=== PATIENT | female | born 1960 | race Caucasian/White ===

== ENCOUNTER 2019-01-18 18:33 | Emergency (ER) | payer OTHER ==
[2019-01-18 19:47] VITALS: PULSE 89
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
[2019-01-18] MEDS ORDERED: Diphtheria,Pertussis(Acell),Tetanus Vaccine 0.5 ML SDV IM ONE (20:30)
[2019-01-18 20:31] VITALS: BP 154/88
== END 2019-01-18 20:38 | disposition home or self-care (01) ==
LOC: FB.ED 18:33
DX: S01.21XA Laceration without foreign body of nose, initial encounter (principal); S60.221A Contusion of right hand, initial encounter; I10 Essential (primary) hypertension; E03.9 Hypothyroidism, unspecified; Z79.899 Other long term (current) drug therapy; Z23 Encounter for immunization; W18.00XA Striking against unspecified object with subsequent fall, initial encounter; W25.XXXA Contact with sharp glass, initial encounter; Y92.239 Unspecified place in hospital as the place of occurrence of the external cause
CPT/HCPCS: 12001; 12011; 90471; 90715; 99283

== ENCOUNTER 2023-01-07 04:49 | Emergency (ER) | payer OTHER ==
[2023-01-07] MEDS ORDERED: HYDROmorphone 2 MG/ML SDV IM ONE (05:08)
[2023-01-07] MEDS ORDERED: hydrOXYzine HCl 50 MG/ML SDV IM ONE (05:08)
[2023-01-07 07:04] VITALS: BP 124/63; PULSE 83
== END 2023-01-07 07:25 ==
LOC: FB.ED 04:49
DX: S99.912A Unspecified injury of left ankle, initial encounter (principal); I10 Essential (primary) hypertension; E03.9 Hypothyroidism, unspecified; Z79.899 Other long term (current) drug therapy; X50.1XXA Overexertion from prolonged static or awkward postures, initial encounter
CPT/HCPCS: 73610-LT; 96372; 99285; J1170; J3410

== ENCOUNTER 2023-03-04 17:10 | Emergency (ER) | payer OTHER ==
[2023-03-04 17:31] LABS: BASOPHILS ABSOLUTE AUTO 0.1 x10-3/uL (0.0-0.1); BASOPHILS PERCENT AUTO 0.7 % (0.2-1.5); EOSINOPHILS ABSOLUTE AUTO 0.2 x10-3/uL (0.0-0.8); EOSINOPHILS PERCENT AUTO 1.8 % (0.6-8.1); HEMATOCRIT 31.5 % (34.2-48.2); HEMOGLOBIN 10.7 g/dL (11.4-15.5); LYMPHOCYTES ABSOLUTE AUTO 1.2 x10-3/uL (1.0-4.4); LYMPHOCYTES PERCENT AUTO 12.5 % (18.4-52.1); MEAN CORPUSCULAR HEMOGLOBIN 31.4 pg (23.9-33.9); MEAN CORPUSCULAR HGB CONC 33.9 g/dL (31.9-34.8); MEAN CORPUSCULAR VOLUME 92.4 fL (76.7-100.5); MEAN PLATELET VOLUME 8.8 fL (7.1-12.4); MONOCYTES ABSOLUTE AUTO 0.6 x10-3/uL (0.3-1.0); MONOCYTES PERCENT AUTO 6.1 % (4.4-15.7); NEUTROPHILS ABSOLUTE AUTO 7.6 x10-3/uL (1.5-6.3); NEUTROPHILS PERCENT AUTO 78.9 % (30.8-76.2); PLATELET COUNT,PLT 254 x10(3)uL (151-488); RED BLOOD CELL COUNT 3.41 x10(6)uL (3.60-5.20); RED CELL DISTRIBUTION WIDTH 17.2 % (12.3-16.5); WHITE BLOOD CELL COUNT,WBC 9.6 x10-3/uL (3.0-10.3)
[2023-03-04 17:33] LABS: BLOOD UREA NITROGEN,BUN 20 mg/dL (7-18); BUN/CREATININE RATIO 28.6 (9-20); CARBON DIOXIDE,CO2 26 mmol/L (21-32); CHLORIDE,CL 106 mmol/L (100-110); CREATININE 0.7 mg/dL (0.55-1.02); EST CRCL DRUG DOSING (CG) 59.09 mL/min; ESTIMATED GFR 97 mL/min (>60); GLUCOSE RANDOM 122 mg/dL (80-116); POTASSIUM,K 3.5 mmol/L (3.5-5.3); SODIUM,NA 142 mmol/L (135-145)
[2023-03-04 17:43] LABS: INR 1.2 (1.00-1.24); PROTHROMBIN TIME 12.3 sec (9.0-11.1); PTT,PARTIAL THROMBOPLSTIN TIME 32.5 SECONDS (24.4-33.2)
[2023-03-04 17:44] LABS: A/G RATIO 0.8; ALANINE AMINOTRANSFERASE,ALT 16 U/L (12-36); ALBUMIN 3.1 g/dL (3.2-4.6); ALKALINE PHOSPHATASE 144 IU/L (56-112); ASPARTATE AMNIOTRANSFERASE,AST 16 IU/L (5-25); BILIRUBIN TOTAL 0.4 mg/dL (0.1-1.3); PROTEIN TOTAL,TP 7.2 g/dL (6.0-8.0)
[2023-03-04] MEDS ORDERED: Sodium Chloride 0.9% 1,000 ML IV ONE (19:04)
[2023-03-04] MEDS ORDERED: Pantoprazole 40 MG Vial IVPUSH ONE (19:39)
[2023-03-04] MEDS ORDERED: Carbidopa/Levodopa 25-100 MG Tab.ER PO ONE ×2 (20:00→20:08)
[2023-03-04] MEDS ORDERED: levETIRAcetam 500 MG Tab PO ONE (20:05)
[2023-03-04] MEDS ORDERED: Carbidopa/Levodopa 25-100 MG Tab PO ONE (20:36)
[2023-03-04 23:12] VITALS: BP 142/61; PULSE 89
== END 2023-03-04 21:45 ==
LOC: FB.ED 17:10
DX: K25.4 Chronic or unspecified gastric ulcer with hemorrhage (principal); R79.89 Other specified abnormal findings of blood chemistry; I10 Essential (primary) hypertension; I25.2 Old myocardial infarction; E03.9 Hypothyroidism, unspecified; Z86.16 Personal history of COVID-19; Z79.899 Other long term (current) drug therapy; Z98.890 Other specified postprocedural states
CPT/HCPCS: 36415; 80053; 82272; 85025; 85610; 85730; 96361; 96374; 99285; 99285-25; A9270-GY; C9113; J7030

== ENCOUNTER 2023-04-10 14:05 | Emergency (ER) | payer OTHER ==
[2023-04-10] MEDS ORDERED: Sodium Chloride 0.9% 10 ML Syringe FLUSH PRN (14:14)
[2023-04-10 14:36] LABS: BASOPHILS ABSOLUTE AUTO 0.1 x10-3/uL (0.0-0.1); BASOPHILS PERCENT AUTO 0.7 % (0.2-1.5); EOSINOPHILS ABSOLUTE AUTO 0.2 x10-3/uL (0.0-0.8); HEMATOCRIT 31.2 % (34.2-48.2); HEMOGLOBIN 10.8 g/dL (11.4-15.5); LYMPHOCYTES ABSOLUTE AUTO 1.5 x10-3/uL (1.0-4.4); LYMPHOCYTES PERCENT AUTO 20.3 % (18.4-52.1); MEAN CORPUSCULAR HEMOGLOBIN 31.8 pg (23.9-33.9); MEAN CORPUSCULAR HGB CONC 34.7 g/dL (31.9-34.8); MEAN CORPUSCULAR VOLUME 91.8 fL (76.7-100.5); MEAN PLATELET VOLUME 8.8 fL (7.1-12.4); MONOCYTES ABSOLUTE AUTO 0.7 x10-3/uL (0.3-1.0); MONOCYTES PERCENT AUTO 8.6 % (4.4-15.7); NEUTROPHILS ABSOLUTE AUTO 5.1 x10-3/uL (1.5-6.3); NEUTROPHILS PERCENT AUTO 67.4 % (30.8-76.2); PLATELET COUNT,PLT 252 x10(3)uL (151-488); RED CELL DISTRIBUTION WIDTH 14.5 % (12.3-16.5); WHITE BLOOD CELL COUNT,WBC 7.6 x10-3/uL (3.0-10.3)
[2023-04-10 14:40] LABS: BLOOD UREA NITROGEN,BUN 17 mg/dL (7-18); BUN/CREATININE RATIO 24.3 (9-20); CARBON DIOXIDE,CO2 27 mmol/L (21-32); CHLORIDE,CL 107 mmol/L (100-110); CREATININE 0.7 mg/dL (0.55-1.02); ESTIMATED GFR 97 mL/min (>60); GLUCOSE RANDOM 109 mg/dL (80-116); POTASSIUM,K 3.3 mmol/L (3.5-5.3); SODIUM,NA 143 mmol/L (135-145)
[2023-04-10 14:46] LABS: A/G RATIO 0.9; ALANINE AMINOTRANSFERASE,ALT 7 U/L (12-36); ALBUMIN 3.1 g/dL (3.2-4.6); ALKALINE PHOSPHATASE 106 IU/L (56-112); AMYLASE 21 U/L (25-115); ASPARTATE AMNIOTRANSFERASE,AST 10 IU/L (5-25); BILIRUBIN TOTAL 0.6 mg/dL (0.1-1.3); PROTEIN TOTAL,TP 6.5 g/dL (6.0-8.0)
[2023-04-10 14:50] LABS: INR 1.28 (1.00-1.24); PROTHROMBIN TIME 13.1 sec (9.0-11.1)
[2023-04-10 14:52] LABS: PTT,PARTIAL THROMBOPLSTIN TIME 30.1 SECONDS (24.4-33.2)
[2023-04-10 15:58] VITALS: BP 108/55; PULSE 89
== END 2023-04-10 16:06 ==
LOC: FB.ED 14:05
DX: K64.8 Other hemorrhoids (principal); D68.318 Other hemorrhagic disorder due to intrinsic circulating anticoagulants, antibodies, or inhibitors; I10 Essential (primary) hypertension; I25.2 Old myocardial infarction; E03.9 Hypothyroidism, unspecified; Z86.16 Personal history of COVID-19; Z79.899 Other long term (current) drug therapy
CPT/HCPCS: 36415; 80053; 82150; 82272; 83690; 85025; 85610; 85730; 99284; 99285

== ENCOUNTER 2023-12-05 14:24 | Emergency (ER) | payer OTHER ==
[2023-12-05] MEDS ORDERED: Sodium Chloride 0.9% 10 ML Syringe FLUSH PRN (14:55)
[2023-12-05 15:19] LABS: BASOPHILS PERCENT AUTO 0.6 % (0.2-1.5); EOSINOPHILS ABSOLUTE AUTO 0.3 x10-3/uL (0.0-0.8); EOSINOPHILS PERCENT AUTO 4.9 % (0.6-8.1); HEMATOCRIT 29.1 % (34.2-48.2); HEMOGLOBIN 9.9 g/dL (11.4-15.5); LYMPHOCYTES ABSOLUTE AUTO 0.7 x10-3/uL (1.0-4.4); LYMPHOCYTES PERCENT AUTO 12.2 % (18.4-52.1); MEAN CORPUSCULAR HEMOGLOBIN 30.8 pg (23.9-33.9); MEAN CORPUSCULAR HGB CONC 33.8 g/dL (31.9-34.8); MEAN PLATELET VOLUME 7.5 fL (7.1-12.4); MONOCYTES ABSOLUTE AUTO 0.5 x10-3/uL (0.3-1.0); MONOCYTES PERCENT AUTO 8.4 % (4.4-15.7); NEUTROPHILS ABSOLUTE AUTO 4.4 x10-3/uL (1.5-6.3); NEUTROPHILS PERCENT AUTO 73.9 % (30.8-76.2); PLATELET COUNT,PLT 316 x10(3)uL (151-488); RED CELL DISTRIBUTION WIDTH 14.8 % (12.3-16.5); WHITE BLOOD CELL COUNT,WBC 5.9 x10-3/uL (3.0-10.3)
[2023-12-05] MEDS: Furosemide 40 MG/4 ML VIAL IVPUSH ONE (15:27)
[2023-12-05] MEDS: Carbidopa/Levodopa 25-100 MG Tab PO ONE (15:27)
[2023-12-05 16:00] LABS: BLOOD UREA NITROGEN,BUN 15 mg/dL (7-18); CALCIUM 8.3 mg/dL (8.6-10.2); CARBON DIOXIDE,CO2 31 mmol/L (21-32); CHLORIDE,CL 102 mmol/L (100-110); CREATININE 0.6 mg/dL (0.55-1.02); EST CRCL DRUG DOSING (CG) 68.04 mL/min; ESTIMATED GFR 100 mL/min (>60); GLUCOSE RANDOM 125 mg/dL (80-116); POTASSIUM,K 3.8 mmol/L (3.5-5.3); SODIUM,NA 141 mmol/L (135-145)
[2023-12-05 16:06] LABS: A/G RATIO 0.8; ALBUMIN 2.9 g/dL (3.2-4.6); ALKALINE PHOSPHATASE 100 IU/L (56-112); ASPARTATE AMNIOTRANSFERASE,AST 6 IU/L (5-25); BILIRUBIN TOTAL 0.9 mg/dL (0.1-1.3); PROTEIN TOTAL,TP 6.4 g/dL (6.0-8.0)
[2023-12-05 16:07] LABS: ALANINE AMINOTRANSFERASE,ALT < 6 U/L (12-36)
[2023-12-05 18:57] VITALS: BP 134/93; PULSE 105
== END 2023-12-05 17:34 ==
LOC: FB.ED 14:24
DX: J81.0 Acute pulmonary edema (principal); D64.9 Anemia, unspecified; E03.9 Hypothyroidism, unspecified; Z91.048 Other nonmedicinal substance allergy status; Z79.890 Hormone replacement therapy; Z79.899 Other long term (current) drug therapy; Z86.16 Personal history of COVID-19; Z90.710 Acquired absence of both cervix and uterus
CPT/HCPCS: 36415; 71046; 80053; 83880; 85025; 96374; 99285; A9270; J1940; 99284

== ENCOUNTER 2023-12-06 20:36 | Emergency (ER) | payer OTHER ==
[2023-12-06] MEDS: cefTRIAXone 1 GM Vial IM ONE (21:08)
[2023-12-06 21:34] VITALS: BP 117/68; PULSE 108
== END 2023-12-06 21:27 ==
LOC: FB.ED 20:36
DX: J18.9 Pneumonia, unspecified organism (principal); G20.A1 Parkinson's disease without dyskinesia, without mention of fluctuations; I10 Essential (primary) hypertension; I25.2 Old myocardial infarction; E03.9 Hypothyroidism, unspecified; Z90.710 Acquired absence of both cervix and uterus; Z91.018 Allergy to other foods; Z79.890 Hormone replacement therapy; Z86.16 Personal history of COVID-19; Z79.899 Other long term (current) drug therapy
CPT/HCPCS: 96372; 99283; J0696

== ENCOUNTER 2023-12-10 07:28 | Emergency (ER) | payer OTHER ==
[2023-12-10] MEDS ORDERED: Sodium Chloride 0.9% 10 ML Syringe FLUSH PRN (08:01)
[2023-12-10 08:35] LABS: BASE EXCESS VENOUS,POC 8 mmol/L (-2 - 3+); PCO2 VENOUS,POC 44 mmHg (41-51); PH VENOUS,POC 7.48 pH Units (7.32-7.43)
[2023-12-10 08:36] LABS: BASOPHILS PERCENT AUTO 0.4 % (0.2-1.5); EOSINOPHILS ABSOLUTE AUTO 0.3 x10-3/uL (0.0-0.8); HEMOGLOBIN 9.2 g/dL (11.4-15.5); LYMPHOCYTES ABSOLUTE AUTO 0.6 x10-3/uL (1.0-4.4); LYMPHOCYTES PERCENT AUTO 8.3 % (18.4-52.1); MEAN CORPUSCULAR HEMOGLOBIN 30.8 pg (23.9-33.9); MEAN CORPUSCULAR HGB CONC 34.1 g/dL (31.9-34.8); MEAN CORPUSCULAR VOLUME 90.3 fL (76.7-100.5); MONOCYTES ABSOLUTE AUTO 0.9 x10-3/uL (0.3-1.0); MONOCYTES PERCENT AUTO 11.7 % (4.4-15.7); NEUTROPHILS ABSOLUTE AUTO 5.8 x10-3/uL (1.5-6.3); NEUTROPHILS PERCENT AUTO 75.6 % (30.8-76.2); PLATELET COUNT,PLT 410 x10(3)uL (151-488); RED BLOOD CELL COUNT 2.99 x10(6)uL (3.60-5.20); RED CELL DISTRIBUTION WIDTH 14.7 % (12.3-16.5); WHITE BLOOD CELL COUNT,WBC 7.7 x10-3/uL (3.0-10.3)
[2023-12-10] MEDS: Iopamidol 755 Mg/ML 100 ML Bottle IV ONE (08:41)
[2023-12-10 08:44] VITALS: PULSE 103
[2023-12-10 08:44] LABS: BLOOD UREA NITROGEN,BUN 13 mg/dL (7-18); CALCIUM 8.2 mg/dL (8.6-10.2); CARBON DIOXIDE,CO2 33 mmol/L (21-32); CHLORIDE,CL 101 mmol/L (100-110); CREATININE 0.5 mg/dL (0.55-1.02); EST CRCL DRUG DOSING (CG) 81.65 mL/min; ESTIMATED GFR 105 mL/min (>60); GLUCOSE RANDOM 102 mg/dL (80-116); POTASSIUM,K 3.5 mmol/L (3.5-5.3); SODIUM,NA 140 mmol/L (135-145)
[2023-12-10 08:55] LABS: A/G RATIO 0.7; ALANINE AMINOTRANSFERASE,ALT 7 U/L (12-36); ALBUMIN 2.7 g/dL (3.2-4.6); ALKALINE PHOSPHATASE 98 IU/L (56-112); ASPARTATE AMNIOTRANSFERASE,AST 11 IU/L (5-25); BILIRUBIN TOTAL 0.7 mg/dL (0.1-1.3); PROTEIN TOTAL,TP 6.6 g/dL (6.0-8.0)
[2023-12-10 08:56] LABS: INR 1.05 (1.00-1.24); PROTHROMBIN TIME 10.9 sec (9.0-11.1)
[2023-12-10 09:10] LABS: D-DIMER QUANTITATIVE 6.99 mg/LFEU (0.0-0.59)
[2023-12-10 10:21] VITALS: BP 119/67
== END 2023-12-10 10:24 ==
LOC: FB.ED 07:28
DX: G20.A1 Parkinson's disease without dyskinesia, without mention of fluctuations (principal); K59.00 Constipation, unspecified; I10 Essential (primary) hypertension; E03.9 Hypothyroidism, unspecified; Z86.16 Personal history of COVID-19; Z79.899 Other long term (current) drug therapy; Z79.890 Hormone replacement therapy; Z91.048 Other nonmedicinal substance allergy status
CPT/HCPCS: 36415; 71275; 74176; 80053; 83605; 83880; 84484; 85025; 85379; 85610; 87040; 87635; 93005; 99285; Q9967; U0002

== ENCOUNTER 2023-12-13 15:41 | Emergency (ER) | payer OTHER ==
[2023-12-13 16:36] LABS: HEMATOCRIT 32.4 % (34.2-48.2); HEMOGLOBIN 10.7 g/dL (11.4-15.5); MEAN CORPUSCULAR HEMOGLOBIN 29.9 pg (23.9-33.9); MEAN CORPUSCULAR HGB CONC 32.9 g/dL (31.9-34.8); MEAN CORPUSCULAR VOLUME 90.9 fL (76.7-100.5); MEAN PLATELET VOLUME 7.3 fL (7.1-12.4); PLATELET COUNT,PLT 524 x10(3)uL (151-488); RED BLOOD CELL COUNT 3.56 x10(6)uL (3.60-5.20); RED CELL DISTRIBUTION WIDTH 15.1 % (12.3-16.5); WHITE BLOOD CELL COUNT,WBC 8.3 x10-3/uL (3.0-10.3)
[2023-12-13 16:37] LABS: BLOOD UREA NITROGEN,BUN 12 mg/dL (7-18); CALCIUM 8.7 mg/dL (8.6-10.2); CARBON DIOXIDE,CO2 31 mmol/L (21-32); CHLORIDE,CL 101 mmol/L (100-110); CREATININE 0.6 mg/dL (0.55-1.02); ESTIMATED GFR 100 mL/min (>60); GLUCOSE RANDOM 119 mg/dL (80-116); POTASSIUM,K 4.3 mmol/L (3.5-5.3); SODIUM,NA 139 mmol/L (135-145)
[2023-12-13 16:52] LABS: C-REACTIVE PROTEIN 9.45 mg/dL (<0.50)
[2023-12-13 17:01] LABS: BAND PERCENT MAN 1 % (0-6); EOSINOPHILS PERCENT MAN 1 % (0-5); LYMPHOCYTES PERCENT MAN 4 % (13-37); MONOCYTES PERCENT MAN 4 % (4-12); SEG NEUTROPHILS PERCENT MAN 90 % (46-82)
[2023-12-13] MEDS: Iopamidol 755 Mg/ML 100 ML Bottle IV SCH (17:10)
[2023-12-13] MEDS: Sodium Chloride 0.9% 1,000 ML IV SCH (19:00)
[2023-12-13] MEDS: Sodium Chloride 0.9% 10 ML Syringe FLUSH PRN (19:00)
[2023-12-13 19:01] VITALS: BP 124/86; PULSE 118
[2023-12-13] MEDS: Acetaminophen 325 MG Tab PO ONE (19:09)
[2023-12-13 19:50] LABS: HEMATOCRIT 30.7 % (34.2-48.2); HEMOGLOBIN 10.2 g/dL (11.4-15.5); MEAN CORPUSCULAR HGB CONC 33.2 g/dL (31.9-34.8); MEAN CORPUSCULAR VOLUME 90.4 fL (76.7-100.5); MEAN PLATELET VOLUME 7.6 fL (7.1-12.4); PLATELET COUNT,PLT 544 x10(3)uL (151-488); RED CELL DISTRIBUTION WIDTH 14.9 % (12.3-16.5); WHITE BLOOD CELL COUNT,WBC 8.9 x10-3/uL (3.0-10.3)
[2023-12-13 19:55] LABS: BAND PERCENT MAN 4 % (0-6); EOSINOPHILS PERCENT MAN 2 % (0-5); LYMPHOCYTES PERCENT MAN 7 % (13-37); MONOCYTES PERCENT MAN 4 % (4-12); SEG NEUTROPHILS PERCENT MAN 83 % (46-82)
[2023-12-13 20:18] LABS: LACTIC ACID 1.4 mmol/L (0.4-2.0)
== END 2023-12-13 21:08 ==
LOC: FB.ED 15:41
DX: C55 Malignant neoplasm of uterus, part unspecified (principal); I10 Essential (primary) hypertension; Z86.16 Personal history of COVID-19; Z90.710 Acquired absence of both cervix and uterus; Z79.899 Other long term (current) drug therapy; Z79.890 Hormone replacement therapy; Z91.048 Other nonmedicinal substance allergy status
CPT/HCPCS: 36415; 74177; 80048; 82272; 83605; 83690; 85025; 86140; 87040; 96360; 96361; 99284; A9270; J3490; J7030; Q9967

== ENCOUNTER 2024-01-13 21:37 | Emergency (ER) | payer OTHER ==
[2024-01-13] MEDS: SODIUM CHLORIDE 0.9% IV ONE (21:48)
[2024-01-13] MEDS: LEVETIRACETAM IV ONE (21:48)
[2024-01-13] MEDS: LORazepam 2 MG/ML SDV IVPUSH ONE (21:48)
[2024-01-13] MEDS: LORazepam 2 MG/ML SDV IVPUSH STA (22:00)
[2024-01-13 22:02] LABS: BLOOD UREA NITROGEN,BUN 16 mg/dL (7-18); CALCIUM 8.3 mg/dL (8.6-10.2); CARBON DIOXIDE,CO2 19 mmol/L (21-32); CHLORIDE,CL 101 mmol/L (100-110); CREATININE 0.8 mg/dL (0.55-1.02); ESTIMATED GFR 82 mL/min (>60); GLUCOSE RANDOM 101 mg/dL (80-116); HEMATOCRIT 32.3 % (34.2-48.2); HEMOGLOBIN 10.7 g/dL (11.4-15.5); MEAN CORPUSCULAR HEMOGLOBIN 28.6 pg (23.9-33.9); MEAN CORPUSCULAR HGB CONC 33.1 g/dL (31.9-34.8); MEAN CORPUSCULAR VOLUME 86.4 fL (76.7-100.5); MEAN PLATELET VOLUME 9.1 fL (7.1-12.4); PLATELET COUNT,PLT 338 x10(3)uL (151-488); POTASSIUM,K 3.9 mmol/L (3.5-5.3); RED BLOOD CELL COUNT 3.74 x10(6)uL (3.60-5.20); RED CELL DISTRIBUTION WIDTH 15.9 % (12.3-16.5); SODIUM,NA 138 mmol/L (135-145); WHITE BLOOD CELL COUNT,WBC 9.4 x10-3/uL (3.0-10.3)
[2024-01-13 22:08] LABS: A/G RATIO 0.5; ALBUMIN 2.5 g/dL (3.2-4.6); ALKALINE PHOSPHATASE 167 IU/L (56-112); ASPARTATE AMNIOTRANSFERASE,AST 16 IU/L (5-25); BILIRUBIN TOTAL 0.9 mg/dL (0.1-1.3); PROTEIN TOTAL,TP 7.1 g/dL (6.0-8.0)
[2024-01-13 22:11] VITALS: BP 126/80; PULSE 119
[2024-01-13 22:11] LABS: ALANINE AMINOTRANSFERASE,ALT < 6 U/L (12-36)
[2024-01-13 23:02] LABS: EOSINOPHILS PERCENT MAN 9 % (0-5); LYMPHOCYTES PERCENT MAN 17 % (13-37); MONOCYTES PERCENT MAN 8 % (4-12); SEG NEUTROPHILS PERCENT MAN 66 % (46-82)
[2024-01-13] MEDS: Sodium Chloride 0.9% 1,000 ML IV SCH (23:19)
== END 2024-01-14 00:30 ==
LOC: FB.ED 21:37
DX: G40.909 Epilepsy, unspecified, not intractable, without status epilepticus (principal); I10 Essential (primary) hypertension; E03.9 Hypothyroidism, unspecified; Z91.048 Other nonmedicinal substance allergy status; Z79.890 Hormone replacement therapy; Z79.899 Other long term (current) drug therapy; Z86.16 Personal history of COVID-19; Z90.710 Acquired absence of both cervix and uterus
CPT/HCPCS: 36415; 71045; 80053; 85025; 96365; 96366; 96375; 99284; 99285; J1953; J2060; J3490; J7030

== ENCOUNTER 2024-01-17 08:36 | Emergency (ER) | payer OTHER ==
[2024-01-17] MEDS ORDERED: Sodium Chloride 0.9% 10 ML Syringe FLUSH PRN (08:41)
[2024-01-17] MEDS: LORazepam 2 MG/ML SDV IVPUSH ONE (08:48)
[2024-01-17 08:56] VITALS: BP 136/85; PULSE 109
[2024-01-17 09:02] LABS: BASOPHILS PERCENT AUTO 0.7 % (0.2-1.5); EOSINOPHILS ABSOLUTE AUTO 0.2 x10-3/uL (0.0-0.8); EOSINOPHILS PERCENT AUTO 2.9 % (0.6-8.1); HEMATOCRIT 32.7 % (34.2-48.2); HEMOGLOBIN 10.6 g/dL (11.4-15.5); LYMPHOCYTES ABSOLUTE AUTO 0.9 x10-3/uL (1.0-4.4); LYMPHOCYTES PERCENT AUTO 13.2 % (18.4-52.1); MEAN CORPUSCULAR HEMOGLOBIN 28.2 pg (23.9-33.9); MEAN CORPUSCULAR HGB CONC 32.5 g/dL (31.9-34.8); MEAN CORPUSCULAR VOLUME 86.9 fL (76.7-100.5); MEAN PLATELET VOLUME 9.2 fL (7.1-12.4); MONOCYTES ABSOLUTE AUTO 0.6 x10-3/uL (0.3-1.0); MONOCYTES PERCENT AUTO 9.3 % (4.4-15.7); NEUTROPHILS PERCENT AUTO 73.9 % (30.8-76.2); PLATELET COUNT,PLT 270 x10(3)uL (151-488); RED BLOOD CELL COUNT 3.76 x10(6)uL (3.60-5.20); WHITE BLOOD CELL COUNT,WBC 6.7 x10-3/uL (3.0-10.3)
[2024-01-17] MEDS: levETIRAcetam in NaCl (iso-os) 1,000 MG in Premix Bag 1 BAG IV ONE (09:04)
[2024-01-17] MEDS: LORazepam 2 MG/ML SDV ONE (09:08)
[2024-01-17 09:09] LABS: BLOOD UREA NITROGEN,BUN 9 mg/dL (7-18); CALCIUM 8.3 mg/dL (8.6-10.2); CARBON DIOXIDE,CO2 22 mmol/L (21-32); CHLORIDE,CL 100 mmol/L (100-110); CREATININE 0.6 mg/dL (0.55-1.02); ESTIMATED GFR 100 mL/min (>60); GLUCOSE RANDOM 87 mg/dL (80-116); POTASSIUM,K 3.7 mmol/L (3.5-5.3); SODIUM,NA 138 mmol/L (135-145)
[2024-01-17 09:15] LABS: A/G RATIO 0.5; ALANINE AMINOTRANSFERASE,ALT < 6 U/L (12-36); ALBUMIN 2.6 g/dL (3.2-4.6); ALKALINE PHOSPHATASE 222 IU/L (56-112); ASPARTATE AMNIOTRANSFERASE,AST 60 IU/L (5-25); PROTEIN TOTAL,TP 7.5 g/dL (6.0-8.0)
[2024-01-17 10:16] LABS: BILIRUBIN,URINE NEGATIVE (NEGATIVE); GLUCOSE,URINE NORMAL (NORMAL); KETONES,URINE 15 mg/dL (NEGATIVE); LEUKOCYTE ESTERASE,URINE LARGE (NEGATIVE); NITRITE,URINE POSITIVE (NEGATIVE); OCCULT BLOOD,URINE LARGE (NEGATIVE); PROTEIN,URINE NEGATIVE (NEGATIVE); UROBILINOGEN,URINE NORMAL (NEGATIVE)
[2024-01-17 10:22] LABS: APPEARANCE,URINE CLOUDY (CLEAR); BACTERIA,URINE MANY (NS); COLOR,URINE YELLOW (YELLOW); RBC,URINE 20-30 (0-5); SQUAMOUS EPITHELIAL CELLS,UR RARE (NS,R,O); WBC,URINE 20-30 (0-5)
[2024-01-17 10:23] LABS: YEAST,URINE OCCASIONAL (NS)
== END 2024-01-17 11:05 ==
LOC: FB.ED 08:36
DX: G20.B1 Parkinson's disease with dyskinesia, without mention of fluctuations (principal); N30.01 Acute cystitis with hematuria; R56.9 Unspecified convulsions; B37.9 Candidiasis, unspecified; I10 Essential (primary) hypertension; I25.2 Old myocardial infarction; Z86.16 Personal history of COVID-19; Z90.710 Acquired absence of both cervix and uterus; Z79.899 Other long term (current) drug therapy; Z91.048 Other nonmedicinal substance allergy status
CPT/HCPCS: 36415; 70450; 80053; 81001; 82550; 85025; 87086; 87088; 87186; 96374; 96375; 99284; 99284-25; J1953; J2060

== ENCOUNTER 2024-01-18 07:57 | Inpatient (IN) | payer OTHER ==
[2024-01-18] MEDS ORDERED: LORazepam 2 MG/ML SDV IVPUSH ONE (08:39)
[2024-01-18 08:55] LABS: BASOPHILS ABSOLUTE AUTO 0.1 x10-3/uL (0.0-0.1); BASOPHILS PERCENT AUTO 0.8 % (0.2-1.5); EOSINOPHILS ABSOLUTE AUTO 0.2 x10-3/uL (0.0-0.8); EOSINOPHILS PERCENT AUTO 3.1 % (0.6-8.1); HEMATOCRIT 30.6 % (34.2-48.2); LYMPHOCYTES ABSOLUTE AUTO 0.9 x10-3/uL (1.0-4.4); LYMPHOCYTES PERCENT AUTO 13.3 % (18.4-52.1); MEAN CORPUSCULAR HEMOGLOBIN 28.2 pg (23.9-33.9); MEAN CORPUSCULAR HGB CONC 32.5 g/dL (31.9-34.8); MEAN CORPUSCULAR VOLUME 86.7 fL (76.7-100.5); MEAN PLATELET VOLUME 9.3 fL (7.1-12.4); MONOCYTES ABSOLUTE AUTO 0.5 x10-3/uL (0.3-1.0); MONOCYTES PERCENT AUTO 8.2 % (4.4-15.7); NEUTROPHILS PERCENT AUTO 74.6 % (30.8-76.2); PLATELET COUNT,PLT 286 x10(3)uL (151-488); RED BLOOD CELL COUNT 3.54 x10(6)uL (3.60-5.20); WHITE BLOOD CELL COUNT,WBC 6.7 x10-3/uL (3.0-10.3)
[2024-01-18 08:59] LABS: BLOOD UREA NITROGEN,BUN 11 mg/dL (7-18); BUN/CREATININE RATIO 15.7 (9-20); CALCIUM 8.2 mg/dL (8.6-10.2); CARBON DIOXIDE,CO2 21 mmol/L (21-32); CHLORIDE,CL 100 mmol/L (100-110); CREATININE 0.7 mg/dL (0.55-1.02); ESTIMATED GFR 97 mL/min (>60); GLUCOSE RANDOM 87 mg/dL (80-116); POTASSIUM,K 3.6 mmol/L (3.5-5.3); SODIUM,NA 138 mmol/L (135-145)
[2024-01-18 09:05] LABS: A/G RATIO 0.5; ALANINE AMINOTRANSFERASE,ALT 12 U/L (12-36); ALBUMIN 2.6 g/dL (3.2-4.6); ALKALINE PHOSPHATASE 211 IU/L (56-112); ASPARTATE AMNIOTRANSFERASE,AST 49 IU/L (5-25); BILIRUBIN TOTAL 0.8 mg/dL (0.1-1.3); PROTEIN TOTAL,TP 7.4 g/dL (6.0-8.0)
[2024-01-18] MEDS ORDERED: Cocoa Butter/Phenylephrine Rectal Supp RECTAL PRN (15:14)
[2024-01-18] MEDS ORDERED: Loratadine 10 MG Tab PO PRN (15:14)
[2024-01-18] MEDS ORDERED: Magnesium Hydroxide 400 MG/5 ML Susp 30 ML Cup PO PRN (15:14)
[2024-01-18] MEDS ORDERED: Polyethylene Glycol 3350 Powder 17 GM Packet PO PRN (15:14)
[2024-01-18] MEDS ORDERED: Bisacodyl 10 MG Supp RECTAL PRN (15:14)
[2024-01-18] MEDS ORDERED: Docusate Sodium 100 MG Cap PO PRN (15:14)
[2024-01-18] MEDS ORDERED: Loperamide 2 MG Cap PO PRN (15:14)
[2024-01-18] MEDS ORDERED: Acetaminophen 325 MG Tab PO PRN (15:14)
[2024-01-18] MEDS ORDERED: guaiFENesin 100 MG/5 ML Soln 5 ML UD Cup PO PRN (15:14)
[2024-01-18] MEDS ORDERED: cefTRIAXone 1 GM in Sodium Chloride 0.9% 50 ML IV SCH (15:30)
[2024-01-18] MEDS: Carbidopa/Levodopa 25-100 MG Tab PO SCH ×2 (15:38→18:40)
[2024-01-18] MEDS ORDERED: Triamcinolone Acetonide 0.1% Crm 15 GM Tube TOP PRN (15:43)
[2024-01-18] MEDS: Potassium Chloride 20 MEQ Tab.ER PO SCH (16:13)
[2024-01-18] MEDS: Enoxaparin 40 MG/0.4 ML Syringe SUBCUT SCH (16:14)
[2024-01-18] MEDS: cefTRIAXone 1 GM Vial IVPUSH SCH (16:15)
[2024-01-18] MEDS: Spironolactone 50 MG Tab PO SCH (16:16)
[2024-01-18] MEDS: Simethicone 80 MG Tab.Chew PO SCH (18:40)
[2024-01-18] MEDS ORDERED: Saccharomyces Boulardii (Probiotic) 250 MG Cap PO SCH (21:00)
[2024-01-18] MEDS: QUEtiapine 25 MG Tab PO SCH (21:17)
[2024-01-18] MEDS: Sennosides/Docusate Sodium 50-8.6 MG Tab PO SCH (21:17)
[2024-01-18] MEDS: Acetaminophen 500 MG Tab PO SCH (21:18)
[2024-01-18] MEDS: levETIRAcetam 500 MG Tab PO SCH (21:19)
[2024-01-18] MEDS: Polyethylene Glycol 3350 Powder 17 GM Packet PO SCH (21:20)
[2024-01-18] MEDS: Nystatin Susp 100,000 Unit/ML 5 ML UD Cup PO SCH (21:20)
[2024-01-18] MEDS: Carboxymethylcellulose Sodium 0.5% Ophth Soln 15 ML Bottle EYEBOTH SCH (21:20)
[2024-01-18] MEDS: Nystatin Topical Powder 15 GM Bottle TOP SCH (21:21)
[2024-01-18] MEDS: Cyclobenzaprine 10 MG Tab PO SCH (21:36)
[2024-01-18] MEDS: Saccharomyces Boulardii (Probiotic) 250 MG Cap PO ONE (22:26)
[2024-01-19] MEDS: Carbidopa/Levodopa 25-100 MG Tab.ER PO SCH
[2024-01-19] MEDS: Levothyroxine 100 MCG Tab PO SCH (05:09)
[2024-01-19] MEDS: Pantoprazole 40 MG Tab.CR PO SCH (05:09)
[2024-01-19 06:40] LABS: EOSINOPHILS ABSOLUTE AUTO 0.1 x10-3/uL (0.0-0.8); EOSINOPHILS PERCENT AUTO 1.9 % (0.6-8.1); HEMATOCRIT 23.9 % (34.2-48.2); LYMPHOCYTES ABSOLUTE AUTO 0.6 x10-3/uL (1.0-4.4); LYMPHOCYTES PERCENT AUTO 12.2 % (18.4-52.1); MEAN CORPUSCULAR HEMOGLOBIN 28.6 pg (23.9-33.9); MEAN CORPUSCULAR HGB CONC 33.4 g/dL (31.9-34.8); MEAN CORPUSCULAR VOLUME 85.6 fL (76.7-100.5); MEAN PLATELET VOLUME 9.4 fL (7.1-12.4); MONOCYTES ABSOLUTE AUTO 0.5 x10-3/uL (0.3-1.0); MONOCYTES PERCENT AUTO 10.1 % (4.4-15.7); NEUTROPHILS ABSOLUTE AUTO 3.6 x10-3/uL (1.5-6.3); NEUTROPHILS PERCENT AUTO 74.8 % (30.8-76.2); PLATELET COUNT,PLT 253 x10(3)uL (151-488); WHITE BLOOD CELL COUNT,WBC 4.8 x10-3/uL (3.0-10.3)
[2024-01-19 06:51] LABS: BLOOD UREA NITROGEN,BUN 7 mg/dL (7-18); BUN/CREATININE RATIO 17.5 (9-20); CALCIUM 7.9 mg/dL (8.6-10.2); CARBON DIOXIDE,CO2 26 mmol/L (21-32); CHLORIDE,CL 102 mmol/L (100-110); CREATININE 0.4 mg/dL (0.55-1.02); EST CRCL DRUG DOSING (CG) 102.06 mL/min; ESTIMATED GFR 110 mL/min (>60); GLUCOSE RANDOM 81 mg/dL (80-116); POTASSIUM,K 4.5 mmol/L (3.5-5.3); SODIUM,NA 137 mmol/L (135-145)
[2024-01-19] MEDS: Potassium Chloride 20 MEQ Tab.ER PO SCH (08:48)
[2024-01-19] MEDS: Donepezil 10 MG Tab PO SCH (08:49)
[2024-01-19] MEDS: Saccharomyces Boulardii (Probiotic) 250 MG Cap PO SCH (08:49)
[2024-01-19] MEDS: Cyclobenzaprine 10 MG Tab PO SCH (08:50)
[2024-01-19] MEDS ORDERED: Meropenem 1,000 MG in Sodium Chloride 0.9% 100 ML IV SCH (10:00)
[2024-01-19] MEDS: Meropenem 1 GM SDV IVPUSH SCH (11:32)
[2024-01-20 06:25] LABS: BASOPHILS ABSOLUTE AUTO 0.1 x10-3/uL (0.0-0.1); BASOPHILS PERCENT AUTO 0.8 % (0.2-1.5); EOSINOPHILS ABSOLUTE AUTO 0.1 x10-3/uL (0.0-0.8); EOSINOPHILS PERCENT AUTO 1.1 % (0.6-8.1); HEMOGLOBIN 8.3 g/dL (11.4-15.5); LYMPHOCYTES ABSOLUTE AUTO 0.6 x10-3/uL (1.0-4.4); LYMPHOCYTES PERCENT AUTO 9.8 % (18.4-52.1); MEAN CORPUSCULAR HEMOGLOBIN 28.3 pg (23.9-33.9); MEAN CORPUSCULAR HGB CONC 33.2 g/dL (31.9-34.8); MEAN CORPUSCULAR VOLUME 85.1 fL (76.7-100.5); MONOCYTES ABSOLUTE AUTO 0.5 x10-3/uL (0.3-1.0); MONOCYTES PERCENT AUTO 8.5 % (4.4-15.7); NEUTROPHILS ABSOLUTE AUTO 5.1 x10-3/uL (1.5-6.3); NEUTROPHILS PERCENT AUTO 79.8 % (30.8-76.2); PLATELET COUNT,PLT 264 x10(3)uL (151-488); RED BLOOD CELL COUNT 2.94 x10(6)uL (3.60-5.20); RED CELL DISTRIBUTION WIDTH 15.4 % (12.3-16.5); WHITE BLOOD CELL COUNT,WBC 6.4 x10-3/uL (3.0-10.3)
[2024-01-20 06:30] LABS: BLOOD UREA NITROGEN,BUN 9 mg/dL (7-18); CALCIUM 7.9 mg/dL (8.6-10.2); CARBON DIOXIDE,CO2 28 mmol/L (21-32); CHLORIDE,CL 98 mmol/L (100-110); CREATININE 0.5 mg/dL (0.55-1.02); EST CRCL DRUG DOSING (CG) 81.65 mL/min; ESTIMATED GFR 105 mL/min (>60); GLUCOSE RANDOM 79 mg/dL (80-116); POTASSIUM,K 4.8 mmol/L (3.5-5.3); SODIUM,NA 135 mmol/L (135-145)
[2024-01-20] MEDS: LORazepam 2 MG/ML SDV IVPUSH PRN (09:41)
[2024-01-20] MEDS: Sodium Chloride 0.9% 10 ML Syringe FLUSH PRN (09:44)
[2024-01-20] MEDS: levETIRAcetam 500 MG in Sodium Chloride 0.9% 100 ML IV ONE (10:27)
[2024-01-20] MEDS ORDERED: levETIRAcetam in NaCl (iso-os) 1,500 MG in Premix Bag 100 BAG IV ONE (10:50)
[2024-01-20] MEDS: Potassium Chloride 20 MEQ in Premix Bag 1 BAG IV SCH (10:51)
[2024-01-20] MEDS: levETIRAcetam in NaCl (iso-os) 1,500 MG in Premix Bag 1 BAG IV ONE (11:01)
[2024-01-20] MEDS: Levofloxacin/Dextrose 5%-Water 750 MG in Premix Bag 1 BAG IV SCH (11:26)
[2024-01-20] MEDS: Acetaminophen 650 MG Supp RECTAL SCH (13:13)
[2024-01-20] MEDS: Carbidopa/Levodopa 25-100 MG Tab PO SCH (16:27)
[2024-01-20] MEDS: levETIRAcetam in NaCl (iso-os) 1,500 MG in Premix Bag 1 BAG IV SCH (20:32)
[2024-01-21] MEDS: LORazepam 2 MG/ML SDV IVPUSH PRN (05:08)
[2024-01-21] MEDS: Pantoprazole 40 MG Vial IV SCH (05:57)
[2024-01-21] MEDS: Carboxymethylcellulose Sodium 0.5% Ophth Soln 15 ML Bottle EYEBOTH PRN (09:21)
[2024-01-21 09:32] LABS: HEMATOCRIT 28.4 % (34.2-48.2); HEMOGLOBIN 9.2 g/dL (11.4-15.5); MEAN CORPUSCULAR HEMOGLOBIN 27.8 pg (23.9-33.9); MEAN CORPUSCULAR HGB CONC 32.5 g/dL (31.9-34.8); MEAN CORPUSCULAR VOLUME 85.5 fL (76.7-100.5); MEAN PLATELET VOLUME 9.4 fL (7.1-12.4); PLATELET COUNT,PLT 504 x10(3)uL (151-488); RED BLOOD CELL COUNT 3.32 x10(6)uL (3.60-5.20); RED CELL DISTRIBUTION WIDTH 16.1 % (12.3-16.5)
[2024-01-21 09:35] LABS: BLOOD UREA NITROGEN,BUN 11 mg/dL (7-18); BUN/CREATININE RATIO 12.2 (9-20); CALCIUM 8.9 mg/dL (8.6-10.2); CARBON DIOXIDE,CO2 24 mmol/L (21-32); CHLORIDE,CL 96 mmol/L (100-110); CREATININE 0.9 mg/dL (0.55-1.02); EST CRCL DRUG DOSING (CG) 45.36 mL/min; ESTIMATED GFR 71 mL/min (>60); POTASSIUM,K 4.6 mmol/L (3.5-5.3); SODIUM,NA 135 mmol/L (135-145)
[2024-01-21 09:47] LABS: GLUCOSE RANDOM 33 mg/dL (80-116)
[2024-01-21 09:54] LABS: LYMPHOCYTES PERCENT MAN 2 % (13-37); MONOCYTES PERCENT MAN 7 % (4-12); SEG NEUTROPHILS PERCENT MAN 91 % (46-82)
[2024-01-21] MEDS: 50% Dextrose in Water 50 ML Syringe IVPUSH PRN (09:58)
[2024-01-21 10:16] LABS: A/G RATIO 0.6; ALANINE AMINOTRANSFERASE,ALT 8 U/L (12-36); ALBUMIN 2.5 g/dL (3.2-4.6); ALKALINE PHOSPHATASE 197 IU/L (56-112); ASPARTATE AMNIOTRANSFERASE,AST 43 IU/L (5-25); BILIRUBIN TOTAL 0.9 mg/dL (0.1-1.3); PROTEIN TOTAL,TP 6.9 g/dL (6.0-8.0)
[2024-01-21] MEDS: Magnesium Sulfate/Water Premix 4 GM in Premix Bag 1 BAG IV ONE (10:16)
[2024-01-21] MEDS: Sodium Chloride 0.9% 1,000 ML IV SCH ×2 (10:33→13:05)
[2024-01-21] MEDS: 50% Dextrose in Water 50 ML Syringe IVPUSH ONE (10:43)
[2024-01-21] MEDS: VANCOmycin 1.75 GM/350 ML 1.75 GM in Premix Bag 1 BAG IV ONE (11:00)
[2024-01-21 11:27] LABS: LACTIC ACID 5.5 mmol/L (0.4-2.0)
[2024-01-21] MEDS: Iopamidol 755 Mg/ML 100 ML Bottle IV SCH (13:16)
[2024-01-21 15:02] LABS: INFLUENZA A NAA NEGATIVE (NEGATIVE); INFLUENZA B NAA NEGATIVE (NEGATIVE); RESPIRATORY SYNCYTIAL VIR NAA NEGATIVE (NEGATIVE)
[2024-01-21 15:04] LABS: CORONAVIRUS COVID-19 NAA NEGATIVE (NEGATIVE)
[2024-01-21] MEDS: Dextrose 5%-0.9% NaCl 1,000 ML IV SCH (15:45)
[2024-01-21] MEDS: metroNIDAZOLE/Normal Saline 500 MG in Premix Bag 1 BAG IV SCH (17:19)
[2024-01-21 18:10] LABS: LACTIC ACID 3.4 mmol/L (0.4-2.0)
[2024-01-22] MEDS: VANCOmycin 1.5 GM/300 ML 1.5 GM in Premix Bag 1 BAG IV SCH (05:57)
[2024-01-22 06:50] LABS: BASOPHILS PERCENT AUTO 0.4 % (0.2-1.5); EOSINOPHILS PERCENT AUTO 0.4 % (0.6-8.1); HEMATOCRIT 22.1 % (34.2-48.2); HEMOGLOBIN 7.2 g/dL (11.4-15.5); LYMPHOCYTES ABSOLUTE AUTO 0.5 x10-3/uL (1.0-4.4); LYMPHOCYTES PERCENT AUTO 7.4 % (18.4-52.1); MEAN CORPUSCULAR HEMOGLOBIN 28.1 pg (23.9-33.9); MEAN CORPUSCULAR HGB CONC 32.7 g/dL (31.9-34.8); MEAN CORPUSCULAR VOLUME 86.2 fL (76.7-100.5); MONOCYTES ABSOLUTE AUTO 0.5 x10-3/uL (0.3-1.0); MONOCYTES PERCENT AUTO 7.4 % (4.4-15.7); NEUTROPHILS PERCENT AUTO 84.4 % (30.8-76.2); PLATELET COUNT,PLT 302 x10(3)uL (151-488); RED BLOOD CELL COUNT 2.57 x10(6)uL (3.60-5.20); RED CELL DISTRIBUTION WIDTH 16.3 % (12.3-16.5); WHITE BLOOD CELL COUNT,WBC 7.1 x10-3/uL (3.0-10.3)
[2024-01-22 06:57] LABS: A/G RATIO 0.6; ALANINE AMINOTRANSFERASE,ALT 7 U/L (12-36); ALBUMIN 2.1 g/dL (3.2-4.6); ALKALINE PHOSPHATASE 139 IU/L (56-112); ASPARTATE AMNIOTRANSFERASE,AST 23 IU/L (5-25); BILIRUBIN TOTAL 0.5 mg/dL (0.1-1.3); BLOOD UREA NITROGEN,BUN 12 mg/dL (7-18); CALCIUM 8.1 mg/dL (8.6-10.2); CARBON DIOXIDE,CO2 24 mmol/L (21-32); CHLORIDE,CL 102 mmol/L (100-110); CREATININE 0.8 mg/dL (0.55-1.02); EST CRCL DRUG DOSING (CG) 51.03 mL/min; ESTIMATED GFR 82 mL/min (>60); GLUCOSE RANDOM 120 mg/dL (80-116); PROTEIN TOTAL,TP 5.8 g/dL (6.0-8.0); SODIUM,NA 138 mmol/L (135-145)
[2024-01-22] MEDS: Aluminum Hydroxide/Magnesium Hydroxide Susp 30 ML Cup PO PRN (15:21)
[2024-01-22] MEDS: Lactated Ringers 1,000 ML IV ONE (16:45)
[2024-01-22] MEDS: Dextrose 5%-0.9% NaCl 1,000 ML IV SCH (19:53)
[2024-01-22 22:06] VITALS: PULSE 103
[2024-01-23 00:58] VITALS: BP 114/76
== END 2024-01-23 00:25 | DRG 872 ==
LOC: FB.ED 07:57 → FB.MS 12:42 → OBSVTOIN 01-22 08:33
PROVIDERS: ADMIT Internal Medicine; ATTEND Family Medicine
DX: A41.4 Sepsis due to anaerobes (principal); B37.0 Candidal stomatitis; E87.20 Acidosis, unspecified; N30.01 Acute cystitis with hematuria; Z16.12 Extended spectrum beta lactamase (ESBL) resistance; I10 Essential (primary) hypertension; G40.409 Other generalized epilepsy and epileptic syndromes, not intractable, without status epilepticus; I25.2 Old myocardial infarction; F02.80 Dementia in other diseases classified elsewhere, unspecified severity, without behavioral disturbance, psychotic disturbance, mood disturbance, and anxiety; D52.9 Folate deficiency anemia, unspecified; E03.9 Hypothyroidism, unspecified; G20.B1 Parkinson's disease with dyskinesia, without mention of fluctuations; B96.89 Other specified bacterial agents as the cause of diseases classified elsewhere; C55 Malignant neoplasm of uterus, part unspecified; N73.9 Female pelvic inflammatory disease, unspecified; L22 Diaper dermatitis; E16.2 Hypoglycemia, unspecified; E83.42 Hypomagnesemia; Z88.8 Allergy status to other drugs, medicaments and biological substances; Z86.16 Personal history of COVID-19; Z90.710 Acquired absence of both cervix and uterus; Z79.899 Other long term (current) drug therapy
CPT/HCPCS: 0241U; 36415; 70450; 71260; 74177; 80048; 80053; 80202; 82947; 83605; 83735; 84484; 85025; 87040; 92610-GN; 93005; 93010; 96365; 96366; 96367; 96368; 96372; 96375; 96376; 99285; A9270-GY; G0378; J0696; J1650; J1836; J1953; J1956; J2060; J2185; J2470; J3372; J3475; J3480; J3490; J7030; Q9967

== ENCOUNTER 2024-10-29 10:42 | Emergency (ER) | payer MEDICARE, OTHER ==
[2024-10-29 12:11] LABS: BASOPHILS ABSOLUTE AUTO 0.0 x10-3/uL (0.0-0.1); BASOPHILS PERCENT AUTO 0.5 % (0.2-1.5); EOSINOPHILS ABSOLUTE AUTO 0.3 x10-3/uL (0.0-0.8); EOSINOPHILS PERCENT AUTO 3.6 % (0.6-8.1); LYMPHOCYTES ABSOLUTE AUTO 1.2 x10-3/uL (1.0-4.4); LYMPHOCYTES PERCENT AUTO 13.8 % (18.4-52.1); MEAN PLATELET VOLUME 8.4 fL (7.1-12.4); MONOCYTES ABSOLUTE AUTO 0.6 x10-3/uL (0.3-1.0); MONOCYTES PERCENT AUTO 6.7 % (4.4-15.7); NEUTROPHILS ABSOLUTE AUTO 6.3 x10-3/uL (1.5-6.3); NEUTROPHILS PERCENT AUTO 75.4 % (30.8-76.2); PLATELET COUNT,PLT 223 x10(3)uL (151-488); RED BLOOD CELL COUNT 4.16 x10(6)uL (3.60-5.20); RED CELL DISTRIBUTION WIDTH 13.5 % (12.3-16.5); WHITE BLOOD CELL COUNT,WBC 8.4 x10-3/uL (3.0-10.3)
[2024-10-29] MEDS: Sodium Chloride 0.9% 10 ML Syringe FLUSH PRN (12:22)
[2024-10-29 12:25] LABS: BLOOD UREA NITROGEN,BUN 36 mg/dL (7-18); CARBON DIOXIDE,CO2 27 mmol/L (21-32); CHLORIDE,CL 101 mmol/L (100-110); CREATININE 1.1 mg/dL (0.55-1.02); ESTIMATED GFR 56 mL/min (>60); GLUCOSE RANDOM 108 mg/dL (80-116); POTASSIUM,K 5.0 mmol/L (3.5-5.3); SODIUM,NA 137 mmol/L (135-145)
[2024-10-29 12:31] LABS: A/G RATIO 0.7; ALANINE AMINOTRANSFERASE,ALT 6 U/L (12-36); ASPARTATE AMNIOTRANSFERASE,AST 10 IU/L (5-25); BILIRUBIN TOTAL 0.4 mg/dL (0.1-1.3); PROTEIN TOTAL,TP 8.4 g/dL (6.0-8.0)
[2024-10-29 12:56] LABS: GLUCOSE,URINE NORMAL (NORMAL); OCCULT BLOOD,URINE LARGE (NEGATIVE)
[2024-10-29 12:58] LABS: APPEARANCE,URINE CLOUDY (CLEAR); SQUAMOUS EPITHELIAL CELLS,UR NOT SEEN (NS,R,O)
[2024-10-29 18:57] VITALS: BP 117/71; PULSE 88
== END 2024-10-29 19:45 | disposition home or self-care (01) ==
LOC: FB.ED 10:42
DX: N39.0 Urinary tract infection, site not specified (principal); R31.9 Hematuria, unspecified; K56.41 Fecal impaction; I10 Essential (primary) hypertension; I25.2 Old myocardial infarction; E03.9 Hypothyroidism, unspecified; Z79.899 Other long term (current) drug therapy; Z79.890 Hormone replacement therapy; Z88.8 Allergy status to other drugs, medicaments and biological substances; Z86.16 Personal history of COVID-19; Z90.710 Acquired absence of both cervix and uterus
CPT/HCPCS: 36415; 51702; 74176; 80053; 81001; 83605; 83735; 85025; 86140; 87086; 96361; 96374; 99284; C1758; J0696; J7040

== ENCOUNTER 2024-11-03 17:11 | Emergency (ER) | payer MEDICARE, OTHER ==
[2024-11-03 18:08] LABS: MEAN PLATELET VOLUME 7.2 fL (7.1-12.4); PLATELET COUNT,PLT 326 x10(3)uL (151-488); RED BLOOD CELL COUNT 4.13 x10(6)uL (3.60-5.20); RED CELL DISTRIBUTION WIDTH 13.1 % (12.3-16.5); WHITE BLOOD CELL COUNT,WBC 12.7 x10-3/uL (3.0-10.3)
[2024-11-03 18:12] LABS: BLOOD UREA NITROGEN,BUN 26 mg/dL (7-18); CARBON DIOXIDE,CO2 31 mmol/L (21-32); CHLORIDE,CL 99 mmol/L (100-110); CREATININE 0.8 mg/dL (0.55-1.02); ESTIMATED GFR 82 mL/min (>60); GLUCOSE RANDOM 115 mg/dL (80-116); POTASSIUM,K 4.4 mmol/L (3.5-5.3); SODIUM,NA 137 mmol/L (135-145)
[2024-11-03 18:18] LABS: A/G RATIO 0.7; ALANINE AMINOTRANSFERASE,ALT 11 U/L (12-36); ASPARTATE AMNIOTRANSFERASE,AST 17 IU/L (5-25); BILIRUBIN TOTAL 0.5 mg/dL (0.1-1.3); PROTEIN TOTAL,TP 8.3 g/dL (6.0-8.0)
[2024-11-03 18:33] LABS: EOSINOPHILS PERCENT MAN 2 % (0-5); LYMPHOCYTES PERCENT MAN 8 % (13-37); MONOCYTES PERCENT MAN 6 % (4-12); SEG NEUTROPHILS PERCENT MAN 84 % (46-82)
[2024-11-03 18:36] VITALS: BP 117/63; PULSE 107
[2024-11-03 20:38] LABS: APPEARANCE,URINE CLOUDY (CLEAR); GLUCOSE,URINE NORMAL (NORMAL); OCCULT BLOOD,URINE LARGE (NEGATIVE)
[2024-11-03] MEDS ORDERED: Sodium Chloride 0.9% 10 ML Syringe FLUSH PRN (21:36)
== END 2024-11-04 00:18 ==
LOC: FB.ED 17:11
DX: N39.0 Urinary tract infection, site not specified (principal); R31.0 Gross hematuria; I10 Essential (primary) hypertension; I25.2 Old myocardial infarction; Z91.018 Allergy to other foods; Z79.899 Other long term (current) drug therapy; Z79.890 Hormone replacement therapy
CPT/HCPCS: 36415; 51700; 51702; 80053; 81001; 85025; 87086; 87088; 87186; 99284; 99285; J7030